=== PATIENT | female | born 1980 | race Caucasian/White ===

== ENCOUNTER 2017-04-16 18:31 | Emergency (ER) | payer MEDICAID ==
[2017-04-16 18:43] VITALS: BP 140/98
--- NOTE | 2017-04-16 19:07 | EDM.PDOC ---
ED HPI GENERAL MEDICAL PROBLEM - General Chief Complaint: Upper Extremity Injury/Pain Stated Complaint: HURT RIGHT HAND Time Seen by Provider: 04/16/17 19:02 Source of Information: Reports: Patient, Family - History of Present Illness INITIAL COMMENTS - FREE TEXT/NARRATIVE: Pt reports hitting a punching bag today about 3pm. Reports wearing thin boxing gloves. Reports pain of an 8. Took Ibuprofen about 3:30pm. No history of fracture. Onset: Sudden Onset Date: 04/16/17 Onset Time: 15:30 Duration: Getting Worse Location: Reports: Upper Extremity, Right Quality: Reports: Ache Severity: Moderate Improves with: Reports: Cold Therapy, Medication Associated Symptoms: Reports: No Other Symptoms Right Hand Pain Score (Numeric/FACES): 8 - Related Data Allergies Allergy/AdvReac Type Severity Reaction Status Date / Time cyclobenzaprine Allergy Cannot Verified 04/16/17 18:45 [From Flexeril] Remember sulfamethoxazole Allergy Rash Verified 04/16/17 18:45 [From Septra] trazodone Allergy Anxiety Verified 04/16/17 18:45 trimethoprim [From Septra] Allergy Rash Verified 04/16/17 18:45 ketorolac tromethamine AdvReac Muscle Verified 04/16/17 18:45 [From Toradol] Aches promethazine HCl AdvReac Muscle Verified 04/16/17 18:45 [From Phenergan] Aches Home Meds: Home Meds DULoxetine [Cymbalta] 30 mg PO BID 11/16/15 [History] Eszopiclone [Lunesta] 3 mg PO DAILY 11/19/16 [History] Omeprazole 1 tab PO DAILY 04/16/17 [History] Past Medical History HEENT History: Reports: Impaired Vision Cardiovascular History: Reports: Other (See Below) Other Cardiovascular History: mitral valve prolapse Gastrointestinal History: Reports: Cholelithiasis, Chronic Constipation, Chronic Diarrhea, Gastritis, GERD Musculoskeletal History: Reports: Back Pain, Chronic, Fibromyalgia Neurological History: Reports: None Psychiatric History: Reports: Anxiety, Panic Attack Endocrine/Metabolic History: Reports: None Hematologic History: Reports: Anemia - Past Surgical History Head Surgeries/Procedures: Reports: None HEENT Surgical History: Reports: Adenoidectomy, Myringotomy w Tube(s), Other ( See Below) Other HEENT Surgeries/Procedures: teeth removed GI Surgical History: Reports: Cholecystectomy, EGD Female Surgical History: Reports: None Neurological Surgical History: Reports: Spinal Fusion Social & Family History - Family History Family Medical History: Noncontributory - Tobacco Use Smoking Status *Q: Former Smoker Years of Tobacco use: 15 Packs/Tins Daily: 0.5 Used Tobacco, but Quit: Yes Month Tobacco Last Used: 0 Second Hand Smoke Exposure: No - Caffeine Use Caffeine Use: Reports: Soda - Recreational Drug Use Recreational Drug Use: No Review of Systems - Review of Systems Review Of Systems: See Below Constitutional: Reports: No Symptoms Respiratory: Reports: No Symptoms Cardiovascular: Reports: No Symptoms Musculoskeletal: Reports: Hand Pain Skin: Reports: Bruising (to right hand) Trauma Exam - Physical Exam Exam: See Below Exam Limited By: No Limitations General Appearance: Reports: Alert, WD/WN, No Apparent Distress Head: Reports: Atraumatic, Normocephalic Extremities: Bony-Point Tenderness (over the 3rd metatarsal right hand), Joint Effusion, Pain with Movement, Tenderness, Other (wrist movements normal) Skin: Reports: Ecchymosis (bruising and swelling to the top of the right hand) Course - Vital Signs Last Recorded V/S: Last Vital Signs Temp 97.9 F 04/16/17 18:44 Pulse 72 04/16/17 18:44 Resp 16 04/16/17 18:44 BP 140/98 H 04/16/17 18:44 Pulse Ox 99 04/16/17 18:44 - Orders/Labs/Meds Orders: Active Orders 24 hr Category Date Time Status Hand Comp Min 3V Rt [CR] Stat Exams 04/16/17 18:41 Taken Departure - Departure Time of Disposition: 19:08 Disposition: Home, Self-Care 01 Clinical Impression: Contusion of hand, right Qualifiers: Encounter type: initial encounter Qualified Code(s): S60.221A - Contusion of right hand, initial encounter - Discharge Information Instructions: Crush Injury, Fingers or Toes, [id number] Forms: ED Department Discharge Additional Instructions: Xray negative for fracture today. Pt to continue ice and elevation. May use Ibuprofen as needed for pain. Richard wrap applied prior to discharge. Reviewed safety with pt and anger management techniques. - Problem List & Annotations (1) Contusion of hand, right SNOMED Code(s): 5305982 Code(s): S60.221A - CONTUSION OF RIGHT HAND, INITIAL ENCOUNTER Status: Acute Priority: Medium Current Visit: Yes Qualifiers: Encounter type: initial encounter Qualified Code(s): S60.221A - Contusion of right hand, initial encounter - My Orders Last 24 Hours: My Active Orders 04/16/17 18:41 Hand Comp Min 3V Rt [CR] Stat - Assessment/Plan Last 24 Hours: My Active Orders 04/16/17 18:41 Hand Comp Min 3V Rt [CR] Stat
--- NOTE | 2017-04-19 08:55 | CR ---
No fracture or dislocation.
== END 2017-04-16 19:15 | disposition home or self-care (01) ==
LOC: JP.ED 18:31
DX: S60.221A Contusion of right hand, initial encounter (principal); F41.9 Anxiety disorder, unspecified; K21.9 Gastro-esophageal reflux disease without esophagitis; Z88.2 Allergy status to sulfonamides; Z88.8 Allergy status to other drugs, medicaments and biological substances; Z79.899 Other long term (current) drug therapy; Z98.890 Other specified postprocedural states; Z86.2 Personal history of diseases of the blood and blood-forming organs and certain disorders involving the immune mechanism; Z90.49 Acquired absence of other specified parts of digestive tract; Z87.891 Personal history of nicotine dependence; W22.8XXA Striking against or struck by other objects, initial encounter
CPT/HCPCS: 73130-26-RT; 73130-RT; 99283

== ENCOUNTER 2021-06-24 15:37 | Emergency (ER) | payer MEDICAID ==
[2021-06-24 16:17] VITALS: BP 153/75; PULSE 68
--- NOTE | 2021-06-24 17:09 | EDM.PDOC ---
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 She reports some decreased sensation to that leg and describes it as "feeling like my leg is asleep". She reports she has had pain for months but things seemed to have exacerbated over the last 24-48 hours without injury. Reports painful ambulation and worries her leg will "buckle" and give out on her. Onset: Gradual Onset Date: 06/22/21 Duration: Day(s): Location: Reports: Lower Extremity, Left Quality: Reports: Burning, Sharp Severity: Moderate Improves with: Reports: Immobilization Worsens with: Reports: Movement Context: Reports: Activity Associated Symptoms: Reports: No Other Symptoms Left Back Pain Score (Numeric/FACES): 8 - Related Data Allergies Allergy/AdvReac Type Severity Reaction Status Date / Time cyclobenzaprine Allergy Cannot Verified 06/24/21 16:20 [From Flexeril] Remember sulfamethoxazole Allergy Rash Verified 06/24/21 16:20 [From Septra] trazodone Allergy Anxiety Verified 06/24/21 16:20 trimethoprim [From Septra] Allergy Rash Verified 06/24/21 16:20 ketorolac tromethamine AdvReac Muscle Verified 06/24/21 16:21 [From Toradol] Aches promethazine HCl AdvReac Muscle Verified 06/24/21 16:20 [From Phenergan] Aches Home Meds: Home Meds Eszopiclone [Lunesta] 3 mg PO BEDTIME 11/19/16 [History] Omeprazole 1 tab PO DAILY 04/16/17 [History] Past Medical History HEENT History: Reports: Impaired Vision Cardiovascular History: Reports: Other (See Below) Other Cardiovascular History: mitral valve prolapse Gastrointestinal History: Reports: Cholelithiasis, Gastritis, GERD Musculoskeletal History: Reports: Back Pain, Chronic, Fibromyalgia Neurological History: Reports: None Psychiatric History: Reports: Anxiety, Panic Attack Endocrine/Metabolic History: Reports: None Hematologic History: Reports: Anemia - Past Surgical History Head Surgeries/Procedures: Reports: None HEENT Surgical History: Reports: Adenoidectomy, Myringotomy w Tube(s), Other (See Below) Other HEENT Surgeries/Procedures: teeth removed GI Surgical History: Reports: Cholecystectomy, EGD Neurological Surgical History: Reports: Spinal Fusion Other Neurological Surgeries/Procedures: L3-5 Musculoskeletal Surgical History: Reports: Other (See Below) Other Musculoskeletal Surgeries/Procedures:: spinal fusion in 2006 Dermatological Surgical History: Reports: Other (See Below) Social & Family History - Family History Family Medical History: No Pertinent Family History - Tobacco Use Tobacco Use Status *Q: Never Tobacco User - Caffeine Use Caffeine Use: Reports: Soda - Recreational Drug Use Recreational Drug Use: No Review of Systems - Review of Systems Review Of Systems: See Below Constitutional: Reports: No Symptoms. Denies: Chills, Diaphoresis, Fever, Weakness Eyes: Reports: No Symptoms Ears: Reports: No Symptoms. Denies: Dizziness, Pain Nose: Reports: No Symptoms. Denies: Pain Mouth/Throat: Reports: No Symptoms Respiratory: Reports: No Symptoms. Denies: Shortness of Breath, Wheezing, Cough, Sputum Cardiovascular: Reports: No Symptoms. Denies: Chest Pain, Edema, Irregular Heart Rate, Lightheadedness, Palpitations GI/Abdominal: Reports: No Symptoms. Denies: Abdominal Pain, Bloody Stool, Diarrhea, Nausea, Vomiting Genitourinary: Reports: No Symptoms Musculoskeletal: Reports: Other (left buttocks pain radiating down left leg to tips of toes. ) Skin: Reports: No Symptoms Neurological: Denies: Confusion, Dizziness, Headache, Numbness, Weakness Psychiatric: Reports: No Symptoms ED EXAM, GENERAL - Physical Exam Exam: See Below Free Text/Narrative:: Maegan is alert, calm and resting on cart with family at the bedside. She is oriented and pleasant. Respirations are regular and non labored. skin is warm and dry. No abdominal pain or distention with palpation. No pedal edema, rash, obvious injuries or deformities. Pain with extension and rotation of left leg and palpation of low back. grimacing with movement during assessment. Sensation intact. no pain with palpation to hip. Exam Limited By: No Limitations General Appearance: Alert, WD/WN, No Apparent Distress Ears: Normal External Exam Nose: Normal Inspection, Normal Mucosa, No Blood Throat/Mouth: Normal Inspection, Normal Lips Head: Atraumatic Neck: Normal Inspection, Non-Tender Respiratory/Chest: No Respiratory Distress, Lungs Clear, Normal Breath Sounds, No Accessory Muscle Use. No: Respiratory Distress, Wheezing, Retractions Cardiovascular: Normal Peripheral Pulses, Regular Rate, Rhythm, No Edema. No: T achycardia GI/Abdominal: Normal Bowel Sounds, Soft, Non-Tender (Female) Exam: Deferred Rectal (Female) Exam: Deferred Back Exam: Normal Inspection, Full Range of Motion, Other (left lower back pain) Extremities: Normal Inspection, No Pedal Edema, Leg Pain, Limited Range of Motion Neurological: Alert, Oriented, Normal Cognition. No: Confused, Memory Loss Remote Events Psychiatric: Normal Affect, Normal Mood Skin Exam: Warm, Dry, Intact, Normal Color, No Rash Lymphatic: No Adenopathy Departure - Departure Time of Disposition: 17:52 Disposition: Home, Self-Care 01 Condition: Good Clinical Impression: Sciatica - Discharge Information Instructions: Pain Medicine Instructions, [id number], Sciatica Rehab- Sports[facility] Referrals: Reilly Ingram Sr, MD [Primary Care Provider] - Forms: ED Department Discharge Additional Instructions: Prescription for 50 mg prednisone daily starting today, for 5 days. Take Cecilia (narcotic pain medication) as needed for severe pain. You should not drive or work while taking this medication, work note provided for you. You can use Ibuprofen in combination with these medications as well but make sure to take some food to prevent GI upset. You can also use additional Tylenol if needed but be mindful that Cecilia contains 325 mg of Tylenol per tablet so it is recommended to not exceed 4000mg of Tylenol in one day. Please follow up with your MRI as scheduled. Return if you have an acute change, if you develop unilateral weakness, loss of bowel or bladder control or any other concerning symptoms. Sepsis Event Note (ED) - Evaluation Sepsis Screening Result: No Definite Risk <Edmundo Carranza - Last Filed: 06/24/21 18:59> Course - Vital Signs Last Recorded V/S: Last Vital Signs Temp 97.7 F 06/24/21 16:19 Pulse 68 06/24/21 16:19 Resp 16 06/24/21 16:19 BP 153/75 H 06/24/21 16:19 Pulse Ox 97 06/24/21 16:19 Sepsis Event Note (ED) - Focused Exam Vital Signs: Vital Signs Temp Pulse Resp BP Pulse Ox 06/24/21 16:19 97.7 F 68 16 153/75 H 97 06/24/21 16:16 97.7 F 68 16 153/75 H 97 Attestation - Student - Attestation Statement Attestation Statement: I personally performed or re-performed the physical examination and medical decision making. I have verified all student documentation or findings, including history, physical exam and/or medical decision making.
== END 2021-06-24 17:52 | disposition home or self-care (01) ==
LOC: JP.ED 15:37
DX: M54.42 Lumbago with sciatica, left side (principal); K21.9 Gastro-esophageal reflux disease without esophagitis; Z88.8 Allergy status to other drugs, medicaments and biological substances; Z88.2 Allergy status to sulfonamides; Z79.899 Other long term (current) drug therapy
CPT/HCPCS: 99283

== ENCOUNTER 2023-12-21 18:59 | Emergency (ER) | payer MEDICAID ==
[2023-12-21 19:31] VITALS: BP 117/96
[2023-12-21] MEDS ORDERED: Albuterol/Ipratropium 3.0-0.5 MG/3 ML Neb Soln NEB ONE (19:57)
[2023-12-21 20:21] VITALS: PULSE 105
[2023-12-21 20:43] LABS: INFLUENZA A NAA NEGATIVE (NEGATIVE); INFLUENZA B NAA NEGATIVE (NEGATIVE); RESPIRATORY SYNCYTIAL VIR NAA NEGATIVE (NEGATIVE)
[2023-12-21 20:44] LABS: CORONAVIRUS COVID-19 NAA POSITIVE (NEGATIVE)
== END 2023-12-21 21:07 | disposition home or self-care (01) ==
LOC: JP.ED 18:59
DX: U07.1 COVID-19 (principal); J20.8 Acute bronchitis due to other specified organisms; Z87.891 Personal history of nicotine dependence; Z79.899 Other long term (current) drug therapy; Z88.8 Allergy status to other drugs, medicaments and biological substances; Z88.5 Allergy status to narcotic agent; Z88.2 Allergy status to sulfonamides
CPT/HCPCS: 0241U; 71046; 71046-26; 94640; 99285; J7620

== ENCOUNTER 2025-05-24 00:22 | Emergency (ER) | payer SELFPAY ==
[2025-05-24] MEDS: Sodium Chloride 0.9% 10 ML Syringe FLUSH PRN (00:47)
[2025-05-24] MEDS: Ondansetron 4 MG/2 ML SDV IVPUSH ONE (00:47)
[2025-05-24] MEDS: Aspirin 81 MG Tab.Chew PO ONE (00:47)
[2025-05-24 00:50] LABS: BASOPHILS ABSOLUTE AUTO 0.07 K/uL (0.00-0.10); BASOPHILS PERCENT AUTO 0.6 % (0.1-1.3); EOSINOPHILS ABSOLUTE AUTO 0.47 K/uL (0.00-0.40); EOSINOPHILS PERCENT AUTO 3.9 % (0.0-5.4); HEMATOCRIT 38.6 % (34.3-46.0); HEMOGLOBIN 12.7 g/dL (11.2-15.5); IMMATURE GRAN ABSOLUTE AUTO 0.05 K/uL (0.00-0.23); IMMATURE GRAN PERCENT AUTO 0.4 % (0.0-0.7); LYMPHOCYTES ABSOLUTE AUTO 2.73 K/uL (0.8-3.3); LYMPHOCYTES PERCENT AUTO 22.7 % (11.4-47.7); MEAN CORPUSCULAR HEMOGLOBIN 30.6 pg (31.6-35.5); MEAN CORPUSCULAR HGB CONC 32.9 g/dL (31.6-35.5); MONOCYTES ABSOLUTE AUTO 0.75 K/uL (0.20-0.90); MONOCYTES PERCENT AUTO 6.2 % (3.3-12.6); NEUTROPHILS ABSOLUTE AUTO 7.98 K/uL (1.0-7.6); NEUTROPHILS PERCENT AUTO 66.2 % (40.0-78.1); PLATELET COUNT,PLT 422 K/uL (130-375); RED BLOOD CELL COUNT 4.15 M/uL (3.77-5.24); WHITE BLOOD CELL COUNT,WBC 12.1 K/uL (3.2-11.0)
[2025-05-24 00:52] VITALS: BP 148/78; PULSE 91
[2025-05-24 01:13] LABS: ALANINE AMINOTRANSFERASE,ALT 26 U/L (12-78); ALBUMIN 3.6 g/dL (3.4-5.0); ALKALINE PHOSPHATASE 170 U/L (46-116); ANION GAP 9.8 mmol/L (5.0-14.0); ASPARTATE AMNIOTRANSFERASE,AST 25 U/L (15-37); BILIRUBIN TOTAL 0.3 mg/dL (0.2-1.0); BLOOD UREA NITROGEN,BUN 16 mg/dL (7-18); CALCIUM 9.4 mg/dL (8.5-10.1); CARBON DIOXIDE,CO2 27 mmol/L (21-32); CHLORIDE,CL 103 mmol/L (100-108); CREATININE 0.8 mg/dL (0.6-1.0); EST CRCL DRUG DOSING (CG) 68.42 mL/min; ESTIMATED GFR 94 mL/min (>60); GLUCOSE RANDOM 95 mg/dL (74-106); POTASSIUM,K 3.9 mmol/L (3.6-5.2); PROTEIN TOTAL,TP 7.4 g/dL (6.4-8.2); SODIUM,NA 140 mmol/L (140-148)
[2025-05-24 01:17] LABS: TROPONIN I HIGH SENSITIVITY < 4.0 pg/mL (<=60.3)
== END 2025-05-24 01:38 | disposition home or self-care (01) ==
LOC: JP.ED 00:22
DX: R07.89 Other chest pain (principal); R19.7 Diarrhea, unspecified; Z88.5 Allergy status to narcotic agent; Z88.2 Allergy status to sulfonamides; Z88.8 Allergy status to other drugs, medicaments and biological substances; Z79.899 Other long term (current) drug therapy
CPT/HCPCS: 36415; 71046; 80053; 84484; 84703; 85025; 93005; 96374; 99285; A9270; J2405; 93010; 99283